=== PATIENT | female | born 1935 | race Two or more races ===

== ENCOUNTER 2020-03-24 15:00 | Outpatient (CLI) | payer MEDICARE ==
[2020-03-24] MEDS ORDERED: LIDOCAINE SOLN 4% 50 ML BOTTLE ONE (15:05)
== END 2020-03-24 23:59 | disposition home health service (06) ==
LOC: WOU 15:00
PROVIDERS: ATTEND Podiatrist Foot & Ankle Surgery
DX: E11.52 Type 2 diabetes mellitus with diabetic peripheral angiopathy with gangrene (principal); E11.42 Type 2 diabetes mellitus with diabetic polyneuropathy; E11.621 Type 2 diabetes mellitus with foot ulcer; I96 Gangrene, not elsewhere classified; L97.418 Non-pressure chronic ulcer of right heel and midfoot with other specified severity
CPT/HCPCS: G0463

== ENCOUNTER 2020-03-31 14:34 | Outpatient (CLI) | payer MEDICARE, MEDICAID ==
[2020-03-31] MEDS ORDERED: UREA 10% -AHA 4% CREAM 57 GM TUBE ONE (14:54)
== END 2020-03-31 23:59 | disposition home health service (06) ==
LOC: WOU 14:34
PROVIDERS: ATTEND Podiatrist Foot & Ankle Surgery
DX: E11.52 Type 2 diabetes mellitus with diabetic peripheral angiopathy with gangrene (principal); I96 Gangrene, not elsewhere classified; E11.621 Type 2 diabetes mellitus with foot ulcer; L97.418 Non-pressure chronic ulcer of right heel and midfoot with other specified severity; I70.235 Atherosclerosis of native arteries of right leg with ulceration of other part of foot; L97.511 Non-pressure chronic ulcer of other part of right foot limited to breakdown of skin; E11.42 Type 2 diabetes mellitus with diabetic polyneuropathy; F02.80 Dementia in other diseases classified elsewhere, unspecified severity, without behavioral disturbance, psychotic disturbance, mood disturbance, and anxiety; R54 Age-related physical debility; Z95.0 Presence of cardiac pacemaker; I69.351 Hemiplegia and hemiparesis following cerebral infarction affecting right dominant side
CPT/HCPCS: G0463

== ENCOUNTER 2020-04-07 14:26 | Outpatient (CLI) | payer MEDICARE, MEDICAID | END 2020-04-07 23:59 | disposition home health service (06) | LOC: WOU 14:26 | PROVIDERS: ATTEND Podiatrist Foot & Ankle Surgery | DX: E11.52 Type 2 diabetes mellitus with diabetic peripheral angiopathy with gangrene (principal); E11.42 Type 2 diabetes mellitus with diabetic polyneuropathy; I96 Gangrene, not elsewhere classified; E11.621 Type 2 diabetes mellitus with foot ulcer; L97.418 Non-pressure chronic ulcer of right heel and midfoot with other specified severity; I70.235 Atherosclerosis of native arteries of right leg with ulceration of other part of foot; L97.512 Non-pressure chronic ulcer of other part of right foot with fat layer exposed; F02.80 Dementia in other diseases classified elsewhere, unspecified severity, without behavioral disturbance, psychotic disturbance, mood disturbance, and anxiety; R54 Age-related physical debility; I69.351 Hemiplegia and hemiparesis following cerebral infarction affecting right dominant side; Z95.0 Presence of cardiac pacemaker; Z87.891 Personal history of nicotine dependence | CPT/HCPCS: G0463 ==

== ENCOUNTER 2020-04-12 12:59 | Outpatient (CLI) | payer MEDICARE, MEDICAID ==
[2020-04-12] MEDS ORDERED: Z GUARD REMEDY 2 OZ OINT TP ONE (13:42)
== END 2020-04-12 23:59 | disposition home health service (06) ==
LOC: WOU 12:59
PROVIDERS: ATTEND Specialist
DX: L89.322 Pressure ulcer of left buttock, stage 2 (principal); L89.312 Pressure ulcer of right buttock, stage 2; L89.152 Pressure ulcer of sacral region, stage 2; E11.52 Type 2 diabetes mellitus with diabetic peripheral angiopathy with gangrene; E11.42 Type 2 diabetes mellitus with diabetic polyneuropathy; I96 Gangrene, not elsewhere classified; F02.80 Dementia in other diseases classified elsewhere, unspecified severity, without behavioral disturbance, psychotic disturbance, mood disturbance, and anxiety; Z95.0 Presence of cardiac pacemaker; I69.351 Hemiplegia and hemiparesis following cerebral infarction affecting right dominant side
CPT/HCPCS: G0463

== ENCOUNTER 2020-04-18 14:21 | Outpatient (CLI) | payer MEDICARE, MEDICAID | END 2020-04-18 23:59 | disposition home health service (06) | LOC: WOU 14:21 | PROVIDERS: ATTEND Podiatrist Foot & Ankle Surgery | DX: E11.621 Type 2 diabetes mellitus with foot ulcer (principal); L97.412 Non-pressure chronic ulcer of right heel and midfoot with fat layer exposed; E11.52 Type 2 diabetes mellitus with diabetic peripheral angiopathy with gangrene; I96 Gangrene, not elsewhere classified; E11.42 Type 2 diabetes mellitus with diabetic polyneuropathy; I70.235 Atherosclerosis of native arteries of right leg with ulceration of other part of foot; L97.512 Non-pressure chronic ulcer of other part of right foot with fat layer exposed; Z87.891 Personal history of nicotine dependence; F02.80 Dementia in other diseases classified elsewhere, unspecified severity, without behavioral disturbance, psychotic disturbance, mood disturbance, and anxiety; Z95.0 Presence of cardiac pacemaker; L89.152 Pressure ulcer of sacral region, stage 2 | CPT/HCPCS: 11042; 87070-TC; 87075-TC; 87186-TC ==